=== PATIENT | male | born 1980 | race Caucasian/White ===

== ENCOUNTER 2016-08-05 13:38 | Emergency (ER) | payer SELFPAY ==
[~2016-08-05] VITALS: Ht 185.4 cm; Wt 88.4 kg
[2016-08-05 13:41] VITALS: BP 126/83
[2016-08-05] MEDS ORDERED: SODIUM CHLORIDE 0.9% 1,000 ML IV ONE (14:20)
[2016-08-05] MEDS ORDERED: LIDOCAINE 1%, 20ML ONE (14:23)
[2016-08-05] MEDS ORDERED: LIDOCAINE 1%, 20ML INFIL ONE (14:30)
[2016-08-05] MEDS ORDERED: SODIUM CHLORIDE FLUSH 10ML SYR IVF ONE (14:30)
[2016-08-05] MEDS ORDERED: HYDROmorphone 1 MG/ML, 1ML IVPush PRN (14:30)
[2016-08-05] MEDS ORDERED: DIPH,PERTUSS(ACELL),TET VAC/PF 0.5 ML IM-VACC ONE ×2 (14:30→14:38)
[2016-08-05] MEDS ORDERED: AMPICILLIN/SULBACTAM 3 GM in SODIUM CHLORIDE 0.9% 100 ML IVPB ONE (14:30)
[2016-08-05] MEDS ORDERED: HYDROmorphone 1 MG/ML, 1ML ONE (14:38)
[2016-08-05] MEDS ORDERED: BACITRACIN ZINC OINT 500U/GM, 0.9 GM ONE (15:44)
== END 2016-08-05 16:26 | disposition home or self-care (01) ==
LOC: ED 14:49
DX: S51.851A Open bite of right forearm, initial encounter (principal); W54.0XXA Bitten by dog, initial encounter; Y93.89 Activity, other specified; Y92.89 Other specified places as the place of occurrence of the external cause; Y99.8 Other external cause status
CPT/HCPCS: 13121; 13122; 73090; 90471; 90715; 96365; 96366; 96375; 99285; J0295; J1170